=== PATIENT | male | born 1965 | race African-American/Black ===

== ENCOUNTER 2020-07-23 01:23 | Inpatient (IN) | payer BC, SELFPAY ==
[2020-07-23 02:18] LABS: Absolute Lymphocytes (CBC) 2.6 K/uL (0.7-4.9); Basophils % 0.5 % (0-1.3); Hematocrit 36.9 % (39.6-49.0); Lymphocytes % 28.1 % (15.3-44.8); MPV 9.5 fL (7.6-11.3); RBC Red Blood Cell Count 4.24 M/uL (4.33-5.43)
--- NOTE | 2020-07-23 02:31 | ER ---
Nurse's Notes [facility] Name: Jason Stewart Age: 54 yrs Sex: Male : 1965 Arrival Date: 07/23/2020 Time: 01:29 Bed 5 Private MD: Diagnosis: Gastrointestinal hemorrhage, unspecified-upper;Vomiting Presentation: 07/23 01:42 Acuity: YAQUELIN 3 sg 01:55 Chief complaint: Patient states: i noticed i have dark watery stool and i vomit blood mg2 today. my stomach has been hurting since noontime today. i was dizzy and almost fainted as well. Coronavirus screen: Client denies travel out of the [place] in the last 14 days. At this time, the client does not indicate any symptoms associated with coronavirus-19. Ebola Screen: No symptoms or risks identified at this time. Initial Sepsis Screen: Does the patient meet any 2 criteria? No. Patient's initial sepsis screen is negative. Does the patient have a suspected source of infection? No. Patient's initial sepsis screen is negative. Risk Assessment: Do you want to hurt yourself or someone else? Patient reports no desire to harm self or others. Onset of symptoms was July 22, 2020 at 12:15. 01:55 Method Of Arrival: Ambulatory mg2 Triage Assessment: 01:59 General: Appears in no apparent distress. Behavior is appropriate for age. Pain: ea Complains of pain in abdomen. GI: Reports vomiting. 01:59 General: Appears in no apparent distress. comfortable, Behavior is calm, cooperative. mg2 Pain: Complains of pain in abdomen. EENT: No signs and/or symptoms were reported regarding the EENT system. Neuro: Level of Consciousness is awake, alert, obeys commands, Oriented to person, place, time, situation. Cardiovascular: Capillary refill < 3 seconds Patient's skin is warm and dry. Respiratory: Airway is patent Respiratory effort is even, unlabored, Respiratory pattern is regular, symmetrical. GI: Reports lower abdominal pain, upper abdominal pain, bloody stool, nausea, vomiting, hematemesis. : No signs and/or symptoms were reported regarding the genitourinary system. Derm: Skin is intact, is healthy with good turgor, Skin is pink, warm \T\ dry. normal. Musculoskeletal: Circulation, motion, and sensation intact. Capillary refill < 3 seconds. Historical: - Allergies: 02:01 No Known Allergies; mg2 - Home Meds: 02:01 None [Active]; mg2 - PMHx: 02:01 None; mg2 - Immunization history:: Adult Immunizations up to date. - Social history:: Smoking status: Patient denies any tobacco usage or history of. Screenin:57 Abuse screen: Denies threats or abuse. Nutritional screening: No deficits noted. ea Tuberculosis screening: No symptoms or risk factors identified. Fall Risk None identified. Assessment: 02:00 Reassessment: see triage note. mg2 03:19 GI: Bowel sounds present X 4 quads. Abd is soft. rr5 03:25 Reassessment: Patient appears in no apparent distress at this time. Patient and/or rr5 family updated on plan of care and expected duration. Pain level reassessed. Patient is alert, oriented x 3, equal unlabored respirations, skin warm/dry/pink. seen by RANJAN Sabillon- hospitalist, admission advised. 07:00 Reassessment: Patient appears in no apparent distress at this time. Patient and/or hb family updated on plan of care and expected duration. Pain level reassessed. Patient is alert, oriented x 3, equal unlabored respirations, skin warm/dry/pink. Awaiting room assignment at this time. 08:00 Reassessment: Patient appears in no apparent distress at this time. Patient and/or hb family updated on plan of care and expected duration. Pain level reassessed. Patient is alert, oriented x 3, equal unlabored respirations, skin warm/dry/pink. 08:45 Reassessment: Patient appears in no apparent distress at this time. Patient and/or hb family updated on plan of care and expected duration. Pain level reassessed. Patient is alert, oriented x 3, equal unlabored respirations, skin warm/dry/pink. 08:57 Reassessment: Attempted to call report to floor, pt as not been assigned to a nurse, hb will call back. Vital Signs: 01:55 BP 153 / 101; Pulse 103; Resp 18; Temp 98.3; Pulse Ox 100% on R/A; Weight 99.79 kg; mg2 Height 5 ft. 10 in. (177.80 cm); 03:26 BP 127 / 71; Pulse 76; Resp 18; Pulse Ox 100% on R/A; rr5 04:57 BP 112 / 66; Pulse 78; Resp 18; Pulse Ox 98% on R/A; mg2 05:53 BP 114 / 76; Pulse 80; Resp 18; Pulse Ox 98% on R/A; mg2 08:00 BP 124 / 73; Pulse 63; Resp 15; Temp 98.1; Pulse Ox 99% on R/A; Pain 3/10; hb 08:56 BP 124 / 72; Pulse 65; Resp 14; Pulse Ox 97% on R/A; hb 01:55 Body Mass Index 31.57 (99.79 kg, 177.80 cm) mg2 ED Course: 01:29 Patient arrived in ED. es 01:42 Triage completed. sg 01:55 Dejon Johnson, GUY is Primary Nurse. mg2 01:56 Jose Ellis MD is Attending Physician. ismael 01:58 Patient has correct armband on for positive identification. Bed in low position. Call ea light in reach. Pulse ox on. NIBP on. 01:59 Arm band placed on right wrist. Patient placed in an exam room, on a stretcher, on ea pulse oximetry. 02:08 Inserted saline lock: 20 gauge in right antecubital area, using aseptic technique. rr5 Blood collected. by GUY Benavidez. 02:29 Nick Muñoz MD is Hospitalizing Provider. ismael 02:55 COVID swab sent to lab. rr5 03:18 No provider procedures requiring assistance completed. Patient admitted, IV remains in rr5 place. 07:16 Primary Nurse role handed off by Dejon Johnson RN eb Administered Medications: 02:28 Not Given (Duplicate Order): ProTONIX 80 mg IVP once ismael 02:28 Not Given (Duplicate Order): ProTONIX 8 mg/hr IV at 25 ml/hr continuous; (Standard ismael dilution is 80 mg in 250 mL NS) 02:29 Drug: Zofran (Ondansetron) 4 mg Route: IVP; Site: right antecubital; rr5 03:18 Follow up: Response: No adverse reaction rr5 02:29 Drug: Pepcid 40 mg Route: IVP; Site: right antecubital; rr5 03:18 Follow up: Response: No adverse reaction rr5 Outcome: 02:30 Decision to Hospitalize by Provider. ismael 09:30 Admitted to Med/surg accompanied by tech, via wheelchair, room 215, with chart, Report hb called to Carlene TOVAR 09:30 Condition: stable 09:30 Instructed on the need for admit, Demonstrated understanding of follow-up care. 09:43 Patient left the ED. tw2 Signatures: Baljit Wilson, RN Jose Galdamez MD MD cha Salyer, Edna es Baxter, Heather, RN RN hb Wise, Tara, RN RN tw2 Reema Fong RN RN ea Botello, Elizabeth eb Gardose, Michele RN RN [facility] Nick Brannon RN RN rr5
--- NOTE | 2020-07-23 02:31 | EDPHYS ---
Physician Documentation [facility] Name: Jason Stewart Age: 54 yrs Sex: Male : 1965 Arrival Date: 07/23/2020 Time: 01:29 Bed 5 Private MD: ED Physician Jose Ellis HPI: 07/23 02:23 This 54 yrs old Black Male presents to ER via Ambulatory with complaints of Abdominal ismael Pain, Vomiting, Dizziness. 02:23 The patient presents to the emergency department with nausea, vomiting, that is ismael intermittent, 2 times since the onset of symptoms. Onset: The symptoms/episode began/occurred just prior to arrival. Possible causes: unknown. The symptoms are aggravated by nothing. The symptoms are alleviated by nothing. Associated signs and symptoms: The patient has no apparent associated signs or symptoms. Associated signs and symptoms: Pertinent positives: abdominal pain, GI bleeding, nausea, vomiting. Severity of symptoms: At their worst the symptoms were mild moderate in the emergency department the symptoms are unchanged. The patient has not experienced similar symptoms in the past. Historical: - Allergies: 02:01 No Known Allergies; mg2 - Home Meds: 02:01 None [Active]; mg2 - PMHx: 02:01 None; mg2 - Immunization history:: Adult Immunizations up to date. - Social history:: Smoking status: Patient denies any tobacco usage or history of. ROS: 02:25 Constitutional: Negative for fever, chills, and weight loss, Eyes: Negative for injury, ismael pain, redness, and discharge, ENT: Negative for injury, pain, and discharge, Neck: Negative for injury, pain, and swelling, Cardiovascular: Negative for chest pain, palpitations, and edema, Respiratory: Negative for shortness of breath, cough, wheezing, and pleuritic chest pain, Back: Negative for injury and pain, : Negative for injury, bleeding, discharge, and swelling, MS/Extremity: Negative for injury and deformity, Skin: Negative for injury, rash, and discoloration, Psych: Negative for depression, anxiety, suicide ideation, homicidal ideation, and hallucinations, Allergy/Immunology: Negative for hives, rash, and allergies, Endocrine: Negative for neck swelling, polydipsia, polyuria, polyphagia, and marked weight changes, Hematologic/Lymphatic: Negative for swollen nodes, abnormal bleeding, and unusual bruising. 02:25 Abdomen/GI: Positive for abdominal pain, nausea, vomiting, abdominal cramps, abdominal distension, hematemesis, black/tarry stool. Exam: 02:25 Constitutional: This is a well developed, well nourished patient who is awake, alert, ismael and in no acute distress. Head/Face: Normocephalic, atraumatic. Eyes: Pupils equal round and reactive to light, extra-ocular motions intact. Lids and lashes normal. Conjunctiva and sclera are non-icteric and not injected. Cornea within normal limits. Periorbital areas with no swelling, redness, or edema. ENT: Nares patent. No nasal discharge, no septal abnormalities noted. Tympanic membranes are normal and external auditory canals are clear. Oropharynx with no redness, swelling, or masses, exudates, or evidence of obstruction, uvula midline. Mucous membranes moist. Neck: Trachea midline, no thyromegaly or masses palpated, and no cervical lymphadenopathy. Supple, full range of motion without nuchal rigidity, or vertebral point tenderness. No Meningismus. Chest/axilla: Normal chest wall appearance and motion. Nontender with no deformity. No lesions are appreciated. Respiratory: Lungs have equal breath sounds bilaterally, clear to auscultation and percussion. No rales, rhonchi or wheezes noted. No increased work of breathing, no retractions or nasal flaring. Abdomen/GI: Soft, non-tender, with normal bowel sounds. No distension or tympany. No guarding or rebound. No evidence of tenderness throughout. Back: No spinal tenderness. No costovertebral tenderness. Full range of motion. Male : Normal genitalia with no discharge or lesions. Skin: Warm, dry with normal turgor. Normal color with no rashes, no lesions, and no evidence of cellulitis. MS/ Extremity: Pulses equal, no cyanosis. Neurovascular intact. Full, normal range of motion. Neuro: Awake and alert, GCS 15, oriented to person, place, time, and situation. Cranial nerves II-XII grossly intact. Motor strength 5/5 in all extremities. Sensory grossly intact. Cerebellar exam normal. Normal gait. Psych: Awake, alert, with orientation to person, place and time. Behavior, mood, and affect are within normal limits. 02:25 Cardiovascular: Rate: tachycardic, actual rate is 103 bpm, Rhythm: regular, Pulses: Pulses are 4+ in bilateral radial, brachial, femoral, popliteal, posterior tibial and and dorsalis pedis arteries.. Heart sounds: normal, normal S1and S2, no S3 or S4, no murmur, no rub, no gallop, Edema: is not appreciated, JVD: is not appreciated. 02:43 ECG was reviewed by the Attending Physician. ismael Vital Signs: 01:55 BP 153 / 101; Pulse 103; Resp 18; Temp 98.3; Pulse Ox 100% on R/A; Weight 99.79 kg; mg2 Height 5 ft. 10 in. (177.80 cm); 03:26 BP 127 / 71; Pulse 76; Resp 18; Pulse Ox 100% on R/A; rr5 04:57 BP 112 / 66; Pulse 78; Resp 18; Pulse Ox 98% on R/A; mg2 05:53 BP 114 / 76; Pulse 80; Resp 18; Pulse Ox 98% on R/A; mg2 08:00 BP 124 / 73; Pulse 63; Resp 15; Temp 98.1; Pulse Ox 99% on R/A; Pain 3/10; hb 08:56 BP 124 / 72; Pulse 65; Resp 14; Pulse Ox 97% on R/A; hb 01:55 Body Mass Index 31.57 (99.79 kg, 177.80 cm) mg2 MDM: 01:56 Patient medically screened. ismael 02:27 Differential diagnosis: Nonspecific abd pain, gastritis, pancreatitis, viral ismael gastroenteritis, gastroenteritis, varices. Differential diagnosis: generalized weakness, GI bleed, hypovolemia, syncope. Data reviewed: vital signs, nurses notes, lab test result(s), EKG, radiologic studies, CT scan, plain films. Data interpreted: monitoring manager: rate is 103 beats/min, rhythm is regular, Pulse oximetry: on room air is 100 %. Test interpretation: by ED physician or midlevel provider: ECG, plain radiologic studies. Counseling: I had a detailed discussion with the patient and/or guardian regarding: the historical points, exam findings, and any diagnostic results supporting the discharge/admit diagnosis, lab results, radiology results, the need for further work-up and treatment in the hospital. 07/23 02:02 Order name: Basic Metabolic Panel mg2 07/23 02:02 Order name: CBC with Diff mg2 07/23 02:02 Order name: Hepatic Function mg2 07/23 02:02 Order name: Lipase mg2 07/23 02:02 Order name: TS mg2 07/23 02:20 Order name: CBC with Automated Diff; Complete Time: 02:22 EDMS 07/23 02:20 Order name: COVID-19 rr5 07/23 02:23 Order name: Magnesium [facility] 07/23 02:23 Order name: NT PRO-BNP [facility] 07/23 02:23 Order name: PT-INR [facility] 07/23 02:23 Order name: Troponin (emerg Dept Use Only) [facility] 07/23 02:34 Order name: Basic Metabolic Panel; Complete Time: 02:38 EDMS 07/23 02:34 Order name: Liver (Hepatic) Function; Complete Time: 02:38 EDMS 07/23 02:34 Order name: Lipase; Complete Time: 02:38 EDMS 07/23 02:23 Order name: XRAY Chest (1 view) [facility] 07/23 02:23 Order name: CT Abd/Pelvis - IV Contrast Only [facility] 07/23 02:46 Order name: Troponin (Emerg Dept Use Only); Complete Time: 03:30 EDMS 07/23 02:46 Order name: NT PRO-BNP; Complete Time: 03:30 EDMS 07/23 02:46 Order name: Magnesium; Complete Time: 03:30 EDMS 07/23 02:55 Order name: CORONAVIRUS ED[facility] 07/23 02:57 Order name: Type and Screen [facility] 07/23 03:01 Order name: Protime (+INR); Complete Time: 03:30 EDMS 07/23 03:50 Order name: SARS-COV-2 RT PCR [facility] 07/23 07:45 Order name: CBC with Automated Diff [facility] 07/23 07:48 Order name: Basic Metabolic Panel [facility] 07/23 09:00 Order name: RAD EDMS 07/23 02:02 Order name: IV Saline Lock; Complete Time: 02:08 mg2 07/23 02:02 Order name: Labs collected and sent; Complete Time: 02:08 mg2 07/23 02:23 Order name: EKG; Complete Time: 02:24 ismael 07/23 02:23 Order name: Cardiac monitoring; Complete Time: 02:30 ismael 07/23 02:23 Order name: EKG - Nurse/Tech; Complete Time: 02:30 ismael 07/23 02:23 Order name: O2 Per Protocol; Complete Time: 02:30 [facility] 07/23 02:23 Order name: O2 Sat Monitoring; Complete Time: : [facility] 07/23 02:33 Order name: NPO; Complete Time: 03:18 [facility] 07/23 02:33 Order name: IV Saline Lock - Large Bore; Complete Time: 03:18 [facility] EC:43 Rate is 84 beats/min. Rhythm is regular. QRS [place] is Normal. IA interval is normal. QRS ismael interval is normal. QT interval is normal. No Q waves. T waves are Normal. No ST changes noted. Clinical impression: Normal ECG and No evidence of ischemia. Interpreted by me. Reviewed by me. Administered Medications: 02:28 Not Given (Duplicate Order): ProTONIX 80 mg IVP once ismael 02:28 Not Given (Duplicate Order): ProTONIX 8 mg/hr IV at 25 ml/hr continuous; (Standard ismael dilution is 80 mg in 250 mL NS) 02:29 Drug: Zofran (Ondansetron) 4 mg Route: IVP; Site: right antecubital; rr5 03:18 Follow up: Response: No adverse reaction rr5 02:29 Drug: Pepcid 40 mg Route: IVP; Site: right antecubital; rr5 03:18 Follow up: Response: No adverse reaction rr5 Disposition: 07/23/20 02:30 Hospitalization ordered by Nick Muñoz for Inpatient Admission. Preliminary diagnosis are Gastrointestinal hemorrhage, unspecified - upper, Vomiting. - Bed requested for Telemetry/MedSurg (Inpatient). - Status is Inpatient Admission. tw2 - Condition is Fair. - Problem is new. - Symptoms have improved. Signatures: Dispatcher [employer] EDNC Jose Ellis MD MD cha Attema, Lee, JUNIOR BRAND MANAGER-C JUNIOR BRAND MANAGER-Cla1 Jennifer Carr RN RN tw2 Reema Fong, RN Maribel Swann ea, Michele, GUY TOVAR [facility] Nick Brannon, RN RN rr5 Corrections: (The following items were deleted from the chart) 08:52 02:30 Hospitalization Ordered by Nick Muñoz MD for Inpatient Admission. Preliminary diagnosis is Gastrointestinal hemorrhage, unspecified - upper; Vomiting. Bed requested for Telemetry/MedSurg (Inpatient). Status is Inpatient Admission. Condition is Fair. Problem is new. Symptoms have improved. ismael 09:43 08:52 07/23/2020 02:30 Hospitalization Ordered by Nick Muñoz MD for Inpatient tw2 Admission. Preliminary diagnosis is Gastrointestinal hemorrhage, unspecified - upper; Vomiting. Bed requested for Telemetry/MedSurg (Inpatient). Status is Inpatient Admission. Condition is Fair. Problem is new. Symptoms have improved. eb
[2020-07-23 02:34] LABS: ALT/SGPT 23 U/L (12-78); AST/SGOT 14 U/L (15-37); Albumin 3.5 g/dL (3.4-5.0); Alkaline Phosphatase 71 U/L (45-117); BUN Blood Urea Nitrogen 31 mg/dL (7-18); Bicarbonate 25 mmol/L (21-32); Bilirubin Direct < 0.1 mg/dL (0-0.2); Bilirubin Total 0.2 mg/dL (0.2-1.0); Glucose Level 122 mg/dL (74-106); Lipase 274 U/L (73-393); Potassium 3.9 mmol/L (3.5-5.1); Protein, Total 6.9 g/dL (6.4-8.2); Sodium Level 142 mmol/L (136-145)
[2020-07-23] MEDS ORDERED: ONDANSETRON 4 MG/2 ML VIAL ONE (02:43)
[2020-07-23 02:46] LABS: Magnesium 2.1 mg/dL (1.8-2.4); NT PRO-BNP 18 pg/mL (<125); Troponin (Emerg Dept Use Only) < 0.02 ng/mL (0.0-0.045)
[2020-07-23] MEDS ORDERED: FAMOTIDINE 20 MG/2 ML VIAL IV ONE (02:47)
[2020-07-23 02:50] LABS: Protime INR 0.99
--- NOTE | 2020-07-23 03:16 | P.HP ---
Certification for Inpatient Patient admitted to: Inpatient With expected LOS: >2 Midnights Patient will require the following post-hospital care: None Practitioner: I am a practitioner with admitting privileges, knowledge of patient current condition, hospital course, and medical plan of care. Services: Services provided to patient in accordance with Admission requirements found in Title 42 Section 412.3 of the Code of Federal Regulations <CelesteRidge judd - Last Filed: 07/23/20 03:12> Patient History Date of Service: 07/23/20 Primary Care Provider: None Reason for admission: Upper GIB History of Present Illness: 54-year-old Afro-Lao male with no significant past medical history presents emergency department for melena and hematemesis. Patient reports that over the course of the last 2-3 days he has had some abdominal pain and cramping that felt like food poisoning, tonight around midnight patient sat down to have bowel movement and had loose stool that was black, patient also had near syncopal episode around that time. Patient then felt the urge to a bowel movement again but became nauseous and vomited what appeared to be bright red blood. Patient denies history of previous GI bleed, denies use of frequent NSAIDs, drinks socially. Labs reveal hemoglobin initially 12.2 hematocrit 36.9 ED provider wishes to admit patient for further evaluation and management. 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 moist/pink Neck: Supple, No LAD Respiratory: Clear to auscultation bilaterally, Normal air movement Cardiovascular: Regular rate/rhythm, Normal S1 S2 Gastrointestinal: Normal bowel sounds, No tenderness Musculoskeletal: No tenderness Integumentary: No rashes Neurological: Normal speech, Normal strength at 5/5 x4 extr, Normal tone - Studies Laboratory Data (last 24 hrs) 07/23/20 02:20: PT 11.7, INR 0.99 07/23/20 02:00: Magnesium 2.1 07/23/20 02:00: WBC 9.4, Hgb 12.2 L, Hct 36.9 L, Plt Count 302 07/23/20 02:00: Sodium 142, Potassium 3.9, BUN 31 H, Creatinine 0.87, Glucose 122 H, Total Bilirubin 0.2, AST 14 L, ALT 23, Alkaline Phosphatase 71, Lipase 274 <Ridge Chew - Last Filed: 07/23/20 03:12> - Studies Laboratory Data (last 24 hrs) 07/23/20 02:20: PT 11.7, INR 0.99 07/23/20 02:00: Magnesium 2.1 07/23/20 02:00: WBC 9.4, Hgb 12.2 L, Hct 36.9 L, Plt Count 302 07/23/20 02:00: Sodium 142, Potassium 3.9, BUN 31 H, Creatinine 0.87, Glucose 122 H, Total Bilirubin 0.2, AST 14 L, ALT 23, Alkaline Phosphatase 71, Lipase 274 <Nick Muñoz - Last Filed: 07/23/20 22:29> Assessment and Plan - Plan Assessment Melena, hematemesis suspect upper GI bleed Plan Melena, hematemesis suspect upper GI bleed: Serial H&H levels, and GI consult in place. Protonix drip. NPO for possible endoscopy. SCDs for DVT prophylaxis. Discharge Plan: Home Plan to discharge in: 48 Hours - Advance Directives Does patient have a Living Will: No Does patient have a Durable POA for Healthcare: No - Code Status/Comfort Care Code Status Assessed: Yes (Full code) Critical Care: No Time Spent Managing Pts Care (In Minutes): 55 <Ridge Chew - Last Filed: 07/23/20 03:12> - Plan Agree with plan as noted above. Patient seen, reports no prior history. some occasional acidic taste in mouth - rare though, ~1/month Discussed with GI - for EGD today <Nick Muñoz - Last Filed: 07/23/20 22:29>
[2020-07-23] MEDS: NA CHLORIDE 0.9% 1,000 ML IV SCH ×2 (06:11→16:27)
[2020-07-23] MEDS ORDERED: PANTOPRAZOLE INJ 80 MG in NA CHLORIDE 0.9% 250 ML IV SCH (06:11)
[2020-07-23] MEDS ORDERED: ONDANSETRON 4 MG/2 ML VIAL IV PRN (06:11)
[2020-07-23] MEDS ORDERED: NA CHLORIDE 0.9% 1,000 ML ONE (06:30)
[2020-07-23 07:40] LABS: Absolute Lymphocytes (CBC) 1.6 K/uL (0.7-4.9); Basophils % 0.4 % (0-1.3); Hematocrit 33.9 % (39.6-49.0); MPV 9.2 fL (7.6-11.3); RBC Red Blood Cell Count 3.93 M/uL (4.33-5.43)
[2020-07-23 07:48] LABS: BUN Blood Urea Nitrogen 27 mg/dL (7-18); Bicarbonate 26 mmol/L (21-32); Glucose Level 100 mg/dL (74-106); Potassium 4.5 mmol/L (3.5-5.1); Sodium Level 140 mmol/L (136-145)
--- NOTE | 2020-07-23 09:00 | RAD REPORT ---
EXAM DESCRIPTION: RAD - Chest Single View - 07/23/2020 2:49 am CLINICAL HISTORY: ABDOMINAL DISTENTION Chest pain. COMPARISON: No comparisons FINDINGS: Portable technique limits examination quality. The lungs are grossly clear. The heart is normal in size. No displaced fractures.Hardware is present in the thoracic spine. IMPRESSION: No acute intrathoracic process suspected.
[2020-07-23 09:45] VITALS: BMI 32.5
[2020-07-23] MEDS ORDERED: INFLUENZA VACCINE (for 3y+) 0.5 ML DOSE IMVAC ONE (12:00)
--- NOTE | 2020-07-23 12:17 | RAD REPORT ---
EXAM DESCRIPTION: CT ABDOMEN AND PELVIS WITH CONTRAST CLINICAL HISTORY: Abd pain; Abdominal distention COMPARISON: None Available. TECHNIQUE: CT of the abdomen and pelvis performed following IV administration of iodinated contras t. FINDINGS: Lung Bases: The visualized lung bases are clear. Bones: Partial visualization of thoracolumbar Hester rods. Levoconvex scoliosis of the thoracolum bar spine. Abdomen: Liver: The liver has normal size and density. No intrahepatic biliary dilatation. Gallbladder: No calcified gallstones. Spleen, Pancreas, and Adrenal Glands: The spleen, pancreas, and adrenal glands are unremarkable. Kidneys: No hydronephrosis or obstructing calculus. Nonobstructing right nephrolithiasis. Vasculature: The aorta and IVC have normal caliber and position. The portal vein is patent. The pro ximal visceral and renal arteries are patent. Stomach: The stomach and duodenum have normal course. Other: No free intraperitoneal air. No free fluid or lymphadenopathy. Tiny fat-containing umbilic al hernia. Pelvis: Bladder: Mild urinary bladder wall thickening. Bowel: No dilated loops of large or small bowel. Scattered diverticula colon. Appendix: Not identified. Pelvis: Enlarged prostate. IMPRESSION: 1. Mild wall thickening of the urinary bladder. This may be related to cystitis or chron ic bladder outlet obstruction. 2. Mildly enlarged prostate. 3. Nonobstructing right nephrolithiasis. 4. Diverticulosis without diverticulitis. This exam was performed according to our departmental dose-optimization program, which includes autom ated exposure control, adjustment of the mA and/or kV according to patient size and/or use of iterati ve reconstruction technique. Electronically signed by: Sawyer Boateng 07/23/2020 3:40 AM GRAVURE PRINTING MACHINIST Due to temporary technical issues with the PACS/Fluency reporting system, reports are being signed by the in house radiologist without review as a courtesy to ensure prompt reporting. The interpreting r adiologist is fully responsible for the content of the report.
[2020-07-23] MEDS ORDERED: propofoL 200 MG/20 ML VIAL IV ONE ×3 (12:50→13:00)
[2020-07-23] MEDS ORDERED: LIDOCAINE 1% MPF 5 ML VIAL ONE (12:50)
[2020-07-23 13:18] VITALS: O2SAT 100
--- NOTE | 2020-07-23 14:28 | CON ---
Reason For Consultation: Upper GI bleed. History Of Presenting Illness: The patient is a 54-year-old gentleman with no significant past medic al history, came to the ER with complaints of dark stools as well as 1 episode of bright red blood in the vomitus. The patient reports abdominal pain over the last 2-3 days as well as nausea, but he re cently started to have dark stools and bloody emesis. Therefore, came to the ER. His hemoglobin see ms to be relatively stable. Past Medical History: None. Past Surgical History: None pertinent to the current issue. Social History: He admits to alcohol use. Denies smoking or drugs. Family History: Noncontributory. Review of Systems: GI: As in HPI, otherwise negative. Remainder of 10-point review of systems negative. Physical Examination: Vital Signs: Reviewed. He is afebrile, not tachycardic, not tachypneic. Normotensive. HEENT: Head atraumatic, normocephalic. Pupils are equally reactive. Neck: Supple. Chest: Clear to auscultation bilaterally. Abdomen: Soft, nontender, nondistended. Bowel sounds present. Extremities: No pedal edema. Laboratory Data: Reviewed. Hemoglobin shows a very mild drop to 11.1 up to 12.2, which may be due t o dilution. No other significant abnormality from a GI point of view on his labs. His COVID test is negative. Impression: A 54-year-old gentleman with abdominal pain, hematemesis, and melena, likely upper GI bl eed. Differential includes Maricruz-Ugarte tear versus peptic ulcer disease. Plan: We will continue to keep the patient n.p.o., continue IV PPI. Schedule him for an upper endos copy. Risks and complications of the procedure, which include, but are not limited to bleeding, infe ction, perforation, anesthesia complications were obtained. He understands and agrees. US/MODL Voice ID: [id number] Report ID: [id number]
--- NOTE | 2020-07-23 14:34 | OP ---
Surgeon: Marcello Ennis MD Procedure Performed: Esophagogastroduodenoscopy. Indication For Procedure: Upper GI bleed. Plan For Anesthesia: Monitored anesthesia care. Complexity: Average. Technique: After obtaining informed consent from the patient and explaining risks and complications which include, but are not limited to bleeding, infection, perforation, and anesthesia complications, the patient was placed in the left lateral position and sedation was given. From then on, the scope was advanced through the mouth and carefully guided up to the second portion of the duodenum. No ac tive bleeding was seen. After the completion of examination, scope and equipment were withdrawn and procedure terminated in a safe manner. Findings: Esophagus: The upper and mid esophagus was normal. In the distal esophagus, a small hiat al hernia was seen as well as mild esophagitis. Stomach: Mild patchy erythema seen in the body and antrum. Biopsies taken in the antrum. Two gastr ic ulcers were seen. One of them was large around 1 cm with both ulcers had a clean base with no hig h risk stigmata of recurrent bleed. Biopsies taken from the ulcer margins. The larger ulcer is like ly the source of the recent bleed. Duodenum: The bulb and second portion appeared normal. Complications: None. Tolerance To Anesthesia: Excellent. Postoperative Diagnoses: Gastric ulcer, likely source of bleeding, however, clean based, status post biopsies; gastritis; hiatal hernia; esophagitis. Plan: 1.Await pathology results. 2.Continue PPI IV for now. Can switch to oral from tomorrow. Clear liquid diet from today evening and advance as tolerated. The patient once discharged, will need to be on b.i.d. PPI. Will need to follow up with us in 1 week. Once he follows up, we will schedule the patient for another endoscopy in 4-6 weeks time to ensure ulcer healing. He also will need a screening colonoscopy. We will discu ss that with him on the followup. US/MODL Voice ID: [id number] Report ID: [id number]
[2020-07-23] MEDS: PANTOPRAZOLE INJ 80 MG in NA CHLORIDE 0.9% 250 ML IV SCH (16:27)
--- NOTE | 2020-07-23 22:32 | P.PN ---
Subjective Date of Service: 07/23/20 Primary Care Provider: None Chief Complaint: Upper GIB Physical Examination - Vital Signs Temperature: 97.8 F Blood Pressure: 117/71 Pulse: 70 Respirations: 18 Pulse Ox (%): 100 - Studies Laboratory Data (last 24 hrs) 07/23/20 02:20: PT 11.7, INR 0.99 07/23/20 02:00: Magnesium 2.1 07/23/20 02:00: WBC 9.4, Hgb 12.2 L, Hct 36.9 L, Plt Count 302 07/23/20 02:00: Sodium 142, Potassium 3.9, BUN 31 H, Creatinine 0.87, Glucose 122 H, Total Bilirubin 0.2, AST 14 L, ALT 23, Alkaline Phosphatase 71, Lipase 274 Assessment & Plan Physician Review Additional Text: s/p EGD patient feeling ok EGD notable for gastric ulcer - clean based, no active bleed continue PPI drip tonight, can transition to PO tomorrow possible DC tomorrow if remains stable. will need BID PPI will need to f/u with GI in 1-2 weeks, biopsy results should be back by then will need EGD in 4-6 weeks
[2020-07-24] MEDS: PANTOPRAZOLE INJ 80 MG in NA CHLORIDE 0.9% 250 ML IV SCH (02:59)
[2020-07-24 06:00] LABS: MPV 9.7 fL (7.6-11.3); RBC Red Blood Cell Count 3.25 M/uL (4.33-5.43)
[2020-07-24 06:05] LABS: BUN Blood Urea Nitrogen 17 mg/dL (7-18); Bicarbonate 26 mmol/L (21-32); Glucose Level 89 mg/dL (74-106); Sodium Level 141 mmol/L (136-145)
[2020-07-24] MEDS ORDERED: PANTOPRAZOLE 40MG TABLET PO SCH (07:30)
[2020-07-24 15:02] VITALS: BP 111/62; TEMP 97.6
--- NOTE | 2020-07-24 21:17 | P.DS ---
Admission Date: 07/23/20 Discharge Date: 07/24/20 Primary Care Provider: None Disposition: ROUTINE DISCHARGE Discharge Condition: GOOD Reason for Admission: Upper GIB Consultations: GI - Dr. Ennis Procedures: EGD (07/23): by Dr. Ennis: Gastric ulcer, likely source of bleeding, however, clean based, status post biopsies; gastritis; hiatal hernia; esophagitis. CT Abd/pelvis (07/23): 1. Mild wall thickening of the urinary bladder. This may be related to cystitis or chronic bladder outlet obstruction. 2. Mildly enlarged prostate. 3. Nonobstructing right nephrolithiasis. 4. Diverticulosis without diverticulitis. Problem List: Melana, hematemesis secondary to bleeding Gastric ulcer Brief History of Present Illness: 54yo M, no significant PMH presented to ED for melena and hematemesis. Reported some vague abdominal discomfort / cramping over the last 2-3 days. He had episode of emesis and watery bowel movement with black flecks. He then had nausea and vomited bright red blood. Denies use of NSAIDs. Drinks 1-2 beers/week and 6pack on weekends. Hgb: 12.2 in ED. Hospital Course: Patient was placed on PPI and Octreotide drip, GI consulted and took patient for EGD. Found to have 2 gastric ulcers, clean based, which were likely source of symptoms/bleed. No evidence of ongoing bleeding. He was monitored overnight. Hgb slightly decreased during hospitalization but likely more due to hemodilution. He did not have recurrence of hematemesis and had a normal bowel movement on day of discharge. He was discharged with BID protonix. He is to f/u with Dr. Ennis in 1 week, and will need repeat EGD in 4-6 weeks. Vital Signs/Physical Exam: Temp Pulse Resp BP Pulse Ox 97.6 F 72 20 111/62 100 07/24/20 12:00 07/24/20 12:00 07/24/20 12:00 07/24/20 12:07/24/20 12:00 General: Alert, In no apparent distress HEENT: Atraumatic, PERRLA Neck: Supple, JVD not distended Respiratory: Clear to auscultation bilaterally, Normal air movement Cardiovascular: Regular rate/rhythm, Normal S1 S2 Gastrointestinal: Normal bowel sounds, Soft and benign, Non-distended, No tenderness Musculoskeletal: No tenderness Integumentary: No rashes, No significant lesion Neurological: Normal speech, Normal affect Laboratory Data at Discharge: WBC 7.1 K/uL (4.3-10.9) 07/24/20 05:24 Hgb 9.4 g/dL (13.6-17.9) L 07/24/20 05:24 Hct 28.0 % (39.6-49.0) L D 07/24/20 05:24 Plt Count 234 K/uL (152-406) 07/24/20 05:24 PT 11.7 SECONDS (9.5-12.5) 07/23/20 02:20 INR 0.99 07/23/20 02:20 Sodium 141 mmol/L (136-145) 07/24/20 05:24 Potassium 4.0 mmol/L (3.5-5.1) 07/24/20 05:24 BUN 17 mg/dL (7-18) 07/24/20 05:24 Creatinine 0.70 mg/dL (0.55-1.3) 07/24/20 05:24 Glucose 89 mg/dL (74-106) 07/24/20 05:24 Magnesium 2.1 mg/dL (1.8-2.4) 07/23/20 02:00 Total Bilirubin 0.2 mg/dL (0.2-1.0) 07/23/20 02:00 AST 14 U/L (15-37) L 07/23/20 02:00 ALT 23 U/L (12-78) 07/23/20 02:00 Alkaline Phosphatase 71 U/L (45-117) 07/23/20 02:00 Lipase 274 U/L (73-393) 07/23/20 02:00 Home Medications: Pantoprazole [Protonix Tab*] 40 mg PO BIDAC 30 Days #60 tab 07/24/20 New Medications: Pantoprazole [Protonix Tab*] 40 mg PO BIDAC 30 Days #60 tab Patient Discharge Instructions: you were found to have 2 gastric ulcers which likely caused your symptoms and bleeding. They were no longer bleeding at time of your endoscopy. You are discharged with prescription for pantoprazole 40mg twice a day. You need to follow up with Dr. Ennis in 1 week, and you will also need to have a repeat endoscopy in 4-6 weeks. Diet: Regular Activity: Ad natalie Followup: NONE,NONE [Primary Care Provider] - Marcello Ennis MD [ACTIVE - CAN ADMIT] - Time spent managing pt's care (in minutes): 40
== END 2020-07-24 14:44 | disposition home or self-care (01) | DRG 379 ==
LOC: ER 01:23 → ERHOLD 03:06 → 2ND 09:27
PROVIDERS: ADMIT Hospitalist; ATTEND Hospitalist
PROC: 0DB78ZX Excision of Stomach, Pylorus, Via Natural or Artificial Opening Endoscopic, Diagnostic (ICD-10-PCS; principal; 2020-07-23 12:30)
DX: K25.4 Chronic or unspecified gastric ulcer with hemorrhage (principal); K29.70 Gastritis, unspecified, without bleeding; K44.9 Diaphragmatic hernia without obstruction or gangrene; K21.00 Gastro-esophageal reflux disease with esophagitis, without bleeding; Z79.899 Other long term (current) drug therapy; Z20.822 Contact with and (suspected) exposure to COVID-19
CPT/HCPCS: 36415; 71045; 74177; 80048; 80076; 83690; 83735; 83880; 84484; 85025; 85027; 85610; 86850; 86900; 86901; 88305; 88312; 93005; 96374; 96375; 99285; C9113; J2405; J2704; J7030; J7050; Q9967; U0003